=== PATIENT | female | born 1940 | race Caucasian/White ===

== ENCOUNTER 2017-07-03 10:35 | Inpatient (IN) | payer MEDICARE, MEDICAID ==
--- NOTE | 2017-07-03 11:22 | RAD ---
Indication: LEFT side weakness. Slurred speech. Last seen without deficits yesterday. Comparison: No relevant prior exams available on the [facility] for comparison. Technique: Noncontrast CT vertex of skull through foramen magnum. Report: Mild prominence of the cerebral sulci reflecting involution. Unremarkable ventricles and basal cisterns. Decreased density in the periventricular and subcortical white matter while non-specific is most likely due to chronic microangiopathy. Negative for lakhani matter white matter obscuration, intra or extra-axial hemorrhage, or mass effect. Unremarkable orbital contents. Unremarkable calvarium and skull base. Clear visualized paranasal sinuses and mastoid air spaces. Unremarkable scalp. IMPRESSION: Mild involutional change and chronic small vessel ischemic change. Negative for intracranial hemorrhage or CT stigmata of ischemic infarct.
[2017-07-03 11:26] LABS: ABS Basophils 0.1 10^3/ul (0-0.2); ABS Eosinophils 0.2 10^3/ul (0-0.6); ABS Lymphocytes 2.6 10^3/ul (1.0-4.8); ABS Monocytes 0.4 10^3/ul (0-0.8); ABS Neutrophils 3.6 10^3/ul (1.5-7.7); ABS Nucleated RBC 0 10^3/ul; Eosinophil % 2.4 % (0-6); Hematocrit 47 % (35-47); Hemoglobin 15.6 g/dl (12.0-16.0); Lymphocyte % 38.3 % (25-47); Mean Corpuscular HGB Conc 34 g/dl (31-36); Mean Corpuscular Hemoglobin 29 pg (27-31); Mean Corpuscular Volume 87 fL (80-97); Mean Platelet Volume 10 um3 (7.4-10.4); Nucleated Red Blood Cells % 0.1; Platelet Count 225 10^3/ul (150-450); Red Blood Count 5.35 10^6/ul (4.0-5.4); Red Cell Distribution Width 15 % (10.5-15); White Blood Count 6.8 10^3/ul (3.5-10.8)
[2017-07-03 11:40] LABS: EGFR Non-African American 73.6 (>60)
[2017-07-03 11:58] LABS: INR 1.02 (0.77-1.02)
--- NOTE | 2017-07-03 14:47 | ED ---
Orville Ozuna Angela, scribed for Jerome Osorio MD on 07/03/17 at 1047 . Neurological HPI - HPI Summary HPI Summary: This pt is a 76 y/o female presenting to [facility] via [facility] for a possible stroke. ED nurse reports the pt has slurred speech and left sided weakness. Per nurse, pt was last seen well yesterday. - History of Current Complaint Chief Complaint: EDNeurologicalDeficit Stated Complaint: STROKE-LIKE SYMPTOMS Hx Obtained From: Patient Onset/Duration: Still Present Timing: Constant Neurological Deficit Location: LUE, LLE Pain Intensity: 0 Character: Weak - left sided, Impaired Speech - slurred speech Aggravating: Nothing Alleviating: Nothing Associated Signs and Symptoms: Positive: Weakness - left sided, Impaired Speech - slurred - Allergy/Home Medications Allergies/Adverse Reactions: Allergies Allergy/AdvReac Type Severity Reaction Status Date / Time Loratadine [From Claritin] Allergy Nausea Verified 01/02/15 13:36 Simvastatin [From Zocor] Allergy Nausea Verified 01/02/15 13:36 grass Allergy Unknown Uncoded 01/02/15 13:17 Reaction Details Home Medications: Home Medications ALPRAZolam TAB* [Xanax TAB*] 0.25 mg PO TID PRN MDD 0.75 mg 07/03/17 [History Confirmed 07/03/17] Acetaminophen TAB* [Tylenol TAB*] 325 mg PO Q6H PRN 07/03/17 [History Confirmed 07/03/17] Aspirin EC Low Dose* [Ecotrin EC Low Dose 81 MG*] 81 mg PO DAILY 07/03/17 [ History Confirmed 07/03/17] Bimatoprost 0.01% OPHTH (NF) [Lumigan 0.01% OPHTH (NF)] 1 drop BOTH EYES BEDTIME 07/03/17 [History Confirmed 07/03/17] Hydrochlorothiazide TAB* [Hydrodiuril TAB*] 25 mg PO DAILY 07/03/17 [History Confirmed 07/03/17] LORazepam TAB(*) [Ativan 1 MG TAB (*)] 1 mg PO .Q6-8H MDD 3 mg 07/03/17 [ History Confirmed 07/03/17] Multivitamins/Minerals TAB* [Theragran/minerals TAB*] 1 tab PO DAILY 01/11/18 [ History Confirmed 07/03/17] Potassium Chlor TAB* [Klor Con ER TAB*] 20 meq PO BID 07/03/17 [History Confirmed 07/03/17] PMH/Surg Hx/FS Hx/Imm Hx Cardiovascular History: Reports: Hx Hypertension, Other Cardiovascular Problems/ Disorders - BUNDLE BRANCH BLOCKAGE Sensory History: Reports: Hx Contacts or Glasses, Hx Glaucoma - right eye only Opthamlomology History: Reports: Hx Contacts or Glasses, Hx Glaucoma - right eye only Neurological History: Reports: Hx Migraine - "ocular migraines" Psychiatric History: Reports: Hx Anxiety, Hx Depression Denies: Hx Attention Deficit Hyperactivity Disorder, Hx Eating Disorder, Hx Panic Disorder, Hx Post Traumatic Stress Disorder, Hx Inpatient Treatment, Hx Community Mental Health Tx, Hx Schizophrenia, Hx Bipolar Disorder, Hx Suicide Attempt, Hx of Violent Episodes Against Others, Hx Substance Abuse - Surgical History Surgery Procedure, Year, and Place: hysterectomy Infectious Disease History: No Infectious Disease History: Denies: Traveled Outside the [place] in Last 30 Days - Family History Known Family History: Positive: Other - FHx of alcohol abuse - Social History Alcohol Use: None Substance Use Type: Reports: None Smoking Status (MU): Never Smoked Tobacco Review of Systems Negative: Fever, Chills Cardiovascular: Negative Respiratory: Negative Neurological: Other - slurred speech Positive: Weakness - left sided All Other Systems Reviewed And Are Negative: Yes Physical Exam - Summary Physical Exam Summary: Appearance: The patient is well-nourished in no acute pain. Skin: The skin is warm and dry and skin color reflects adequate perfusion. HEENT: The head is normocephalic and atraumatic. The pupils are equal and reactive. The conjunctivae are clear and without drainage. Nares are patent and without drainage. Mouth reveals moist mucous membranes and the throat is without erythema and exudate. The external ears are intact. The ear canals are patent and without drainage. The tympanic membranes are intact. Neck: the neck is supple with full range of motion and non-tender. There are no carotid bruits. There is no neck vein distension. Respiratory: Chest is non-tender. Lungs are clear to auscultation and breath sounds are symmetrical and equal. Cardiovascular: Heart is regular rate and rhythm. There is no murmur or rub auscultated. There is no peripheral edema and pulses are symmetrical and equal. Abdomen: The abdomen is soft and non-tender. There are normal bowel sounds heard in all four quadrants and there is no organomegaly palpated. Musculoskeletal: There is no back tenderness noted. Extremities are non-tender with full range of motion. There is good capillary refill. There is no peripheral edema or calf tenderness elicited. Neurological: Patient is alert and oriented to person, place and time. The patient has symmetrical motor strength in all four extremities. Pt has dysarthria and seems to have expressive aphasia but it is different to tell. She may have a little receptive aphasia. Psychiatric: The patient has an appropriate affect and does not exhibit any anxiety or depression. Triage Information Reviewed: Yes Vital Signs On Initial Exam: Initial Vitals Temp Pulse Resp BP Pulse Ox 97.6 F 82 18 147/73 96 07/03/17 10:38 07/03/17 10:38 07/03/17 10:38 07/03/17 10:38 07/03/17 10:38 Vital Signs Reviewed: Yes Diagnostics - Vital Signs Vital Signs Temp Pulse Resp BP Pulse Ox 07/03/17 10:38 97.6 F 82 18 147/73 96 - Laboratory Lab Results: Lab Results 07/03/17 07/03/17 07/03/17 Range/Units 11:09 11:09 11:09 WBC 6.8 (3.5-10.8) 10^3/ul RBC 5.35 (4.0-5.4) 10^6/ul Hgb 15.6 (12.0-16.0) g/dl Hct 47 (35-47) % MCV 87 (80-97) fL MCH 29 (27-31) pg MCHC 34 (31-36) g/dl RDW 15 (10.5-15) % Plt Count 225 (150-450) 10^3/ul MPV 10 (7.4-10.4) um3 Neut % (Auto) 52.5 (38-83) % Lymph % (Auto) 38.3 (25-47) % Hernando % (Auto) 5.7 (1-9) % Eos % (Auto) 2.4 (0-6) % Baso % (Auto) 1.1 (0-2) % Absolute Neuts (auto) 3.6 (1.5-7.7) 10^3/ul Absolute Lymphs (auto) 2.6 (1.0-4.8) 10^3/ul Absolute Monos (auto) 0.4 (0-0.8) 10^3/ul Absolute Eos (auto) 0.2 (0-0.6) 10^3/ul Absolute Basos (auto) 0.1 (0-0.2) 10^3/ul Absolute Nucleated RBC 0 10^3/ul Nucleated RBC % 0.1 INR (Anticoag Therapy) (0.77-1.02) Sodium 137 (133-145) mmol/L Potassium 3.3 L (3.5-5.0) mmol/L Chloride 102 (101-111) mmol/L Carbon Dioxide 29 (22-32) mmol/L Anion Gap 6 (2-11) mmol/L BUN 7 (6-24) mg/dL Creatinine 0.76 (0.51-0.95) mg/dL Est GFR ( Amer) 94.7 (>60) Est GFR (Non-Af Amer) 73.6 (>60) BUN/Creatinine Ratio 9.2 (8-20) Glucose 101 H (70-100) mg/dL Lactic Acid 1.0 (0.5-2.0) mmol/L Calcium 9.2 (8.6-10.3) mg/dL Total Bilirubin 0.80 (0.2-1.0) mg/dL AST 13 (13-39) U/L ALT 10 (7-52) U/L Alkaline Phosphatase 56 (34-104) U/L Ammonia (16-53) mol/L Troponin I 0.01 (<0.04) ng/mL Total Protein 6.7 (6.4-8.9) g/dL Albumin 3.7 (3.2-5.2) g/dL Globulin 3.0 (2-4) g/dL Albumin/Globulin Ratio 1.2 (1-3) TSH Pending 07/03/17 07/03/17 Range/Units 11:09 13:58 WBC (3.5-10.8) 10^3/ul RBC (4.0-5.4) 10^6/ul Hgb (12.0-16.0) g/dl Hct (35-47) % MCV (80-97) fL MCH (27-31) pg MCHC (31-36) g/dl RDW (10.5-15) % Plt Count (150-450) 10^3/ul MPV (7.4-10.4) um3 Neut % (Auto) (38-83) % Lymph % (Auto) (25-47) % Hernando % (Auto) (1-9) % Eos % (Auto) (0-6) % Baso % (Auto) (0-2) % Absolute Neuts (auto) (1.5-7.7) 10^3/ul Absolute Lymphs (auto) (1.0-4.8) 10^3/ul Absolute Monos (auto) (0-0.8) 10^3/ul Absolute Eos (auto) (0-0.6) 10^3/ul Absolute Basos (auto) (0-0.2) 10^3/ul Absolute Nucleated RBC 10^3/ul Nucleated RBC % INR (Anticoag Therapy) 1.02 (0.77-1.02) Sodium (133-145) mmol/L Potassium (3.5-5.0) mmol/L Chloride (101-111) mmol/L Carbon Dioxide (22-32) mmol/L Anion Gap (2-11) mmol/L BUN (6-24) mg/dL Creatinine (0.51-0.95) mg/dL Est GFR ( Amer) (>60) Est GFR (Non-Af Amer) (>60) BUN/Creatinine Ratio (8-20) Glucose (70-100) mg/dL Lactic Acid (0.5-2.0) mmol/L Calcium (8.6-10.3) mg/dL Total Bilirubin (0.2-1.0) mg/dL AST (13-39) U/L ALT (7-52) U/L Alkaline Phosphatase (34-104) U/L Ammonia 41 (16-53) mol/L Troponin I (<0.04) ng/mL Total Protein (6.4-8.9) g/dL Albumin (3.2-5.2) g/dL Globulin (2-4) g/dL Albumin/Globulin Ratio (1-3) TSH Result Diagrams: 07/03/17 11:09 07/03/17 11:09 Lab Statement: Any lab studies that have been ordered have been reviewed, and results considered in the medical decision making process. - CT Brain CT CT Interpretation: Positive (See Comments) - IMPRESSION: Mild involutional change and chronic small vessel ischemic change. Negative for intracranial hemorrhage or CT stigmata of ischemic infarct. Dr. Osorio has reviewed this radiology report. CT Interpretation Completed By: Radiologist - EKG 11:04 Cardiac Rate: NL EKG Rhythm: Sinus Rhythm - at 79 bpm EKG Interpretation: Right bundle branch block EKG Comparison: No Significant Change - no change from 12/08/14. Course/Dx - Course Course Of Treatment: Ms. Stewart presented with AMS. She was reported to have a left-sided weakness at home that she woke up with this AM. To my exam she has significant dysarthria and confusion. I can't tell if she has a expressive or receptive aphasia or is just confused. I can't detect any left sided weakness but she is not very cooperative to the exam. Her pupils are small but she is breathing OK and her home meds do not include narcotics. She is, however, taking Ativan and although she recently filled a new script, her bottle is almost empty. This may be solely an OD of medications. Dr. Franz was asked to see her and agreed that it doesn't look like an acute sroke at this point. The hospitalists are admitting her. - Diagnoses Provider Diagnoses: Altered mental status - Physician Notifications Discussed Care Of Patient With: Leon Franz Instructed by Provider To: Other - I discussed pt care with Dr. Franz, neurologist. [13:37] I discussed pt's case with Dr. Dee, hospitalist, who has agreed to admit the pt. - Critical Care Time Critical Care Time: 30-74 min Discharge - Discharge Plan Condition: Stable Disposition: ADMITTED TO [facility] Referrals: Babatunde Lundberg MD [Primary Care Provider] - The documentation as recorded by the Orville tapia Angela accurately reflects the service I personally performed and the decisions made by me, Jerome Osorio MD.
[2017-07-03] MEDS ORDERED: Magnesium Sulfate 1 GM IV* 1 GM/100 ML BAG IV ONE (16:20)
[2017-07-03] MEDS: NS 0.9% 1000 ML* 1,000 ML IV SCH (18:19)
[2017-07-03] MEDS: Acetaminophen TAB* 325 MG PO PRN (18:20)
[2017-07-03] MEDS: KCL 10 MEQ/50 ML IVPREMIX* 10 MEQ/50 ML BAG IV SCH ×3 (18:20→23:40)
--- NOTE | 2017-07-03 20:36 | HP ---
HISTORY AND PHYSICAL: DATE OF ADMISSION: 07/03/17 ATTENDING PHYSICIAN: Mayda Dee DO CHIEF COMPLAINT: Acute delirium. HISTORY OF PRESENT ILLNESS: This is a 76-year-old female with history of anxiety and depression, who takes Ativan at home, who presented to the emergency department after she called the ambulance hours after she took about 75 pills of Ativan 0.5 mg. She reports suicidal intention the night prior to admission. She filled her prescription for Ativan 90 tablets on 07/01/17, and today in the emergency department she has only 14 tablets left, they are 0.5 mg tablets. She reports she wakes up every morning in a panic and did not want to live anymore. She denies ingestion of any other substances or prescriptions and she called the ambulance when she woke up because she was scared. She feels sleepy at this time, but has no other complaints. She was admitted to inpatient psych 2 years ago with ongoing anxiety. PAST MEDICAL HISTORY: 1. Personality disorder. 2. Anxiety. 3. Hypertension. SOCIAL HISTORY: Her daughter, Elizabeth King, is her decision maker if she is unable to make decisions for herself. Elizabeth's phone number is [phone]. Most of this history was obtained via [employer] as Jada is unable to provide a reliable history. She lives alone. She denies alcohol, tobacco or illicit substances. REVIEW OF SYSTEMS: Reports sleepiness, anxiety, and depression. Denies chest pain, shortness of breath, dizziness, lightheadedness, homicidal ideation, abdominal pain, nausea or vomiting. PHYSICAL EXAMINATION GENERAL: Alert, sitting up in bed, in no distress. She follows commands. Her speech is slurred and she is oriented to person only. VITAL SIGNS: Temperature 97.6, heart rate 66, respiratory rate 19, pulse ox 96 % on room air, blood pressure 120/61. HEENT: Pupils are 2 mm equal, round and reactive to light. Extraocular muscles are intact. Dry mucosa. NECK: No cervical lymphadenopathy. No JVP. LUNGS: Clear bilaterally. HEART: Regular rate and rhythm. No murmurs. ABDOMEN: Soft, nontender, nondistended. No guarding or rebound. EXTREMITIES: No rashes, ulcers, or edema. NEUROLOGIC: Strength is 5+ throughout. Sensation is intact. Coordination is intact. No nystagmus. LABORATORY DATA: CBC is unremarkable. Troponin is 0.01. Salicylates, acetaminophen, and serum alcohol are negative. LFTs are within normal limits. TSH is within normal limits. IMAGING: Brain CT showed mild involutional change and chronic small vessel ischemic change. Negative for intracranial hemorrhage or CT stigmata of ischemic infarct. EKG; QRS is 162, QTC is 506. She has a right bundle-branch block which is present on prior EKGs. ASSESSMENT AND PLAN: This is a 76-year-old female with history of anxiety and personality disorder who presents after Ativan overdose. 1. Ativan overdose with suicidal intent. Needs one-to-one observation and psychiatric evaluation. I discussed this case with [facility] and they recommended IV fluids and repleting her potassium and magnesium. Her QRS and QTC are similar to prior EKGs; however, we will replete electrolytes. Her other tox screen was negative. She needs to be monitored on telemetry. We will hold benzos for now. 2. DVT prophylaxis. Lovenox. 3. Disposition. Admit to telemetry on a one-to-one with psychiatric evaluation. TIME SPENT: Greater than 60 minutes was spent on this H and P. [id number]/CPS #: [id number] MTDD
--- NOTE | 2017-07-03 21:01 | CONS ---
NEUROLOGY CONSULTATION: DATE OF CONSULT: 07/03/17 LOCATION: She is in the emergency room to be admitted. REFERRING PROVIDER: Dr. Osorio. CHIEF COMPLAINT: Slurred speech, lethargy. HISTORY OF PRESENT ILLNESS: Jada Stewart is a 76-year-old woman, who normally speaks with her daughter over the phone, who lives in [place], every morning. Her daughter did not hear from her and called and there was no answer. Daughter called the neighbor who went over and checked on Jada and Jada had slurred speech and was lethargic. There is a suggestion of left-sided weakness by either an candy attendant or perhaps the neighbor. She was brought in to the emergency room and on Dr. Osorio's evaluation, he did not see any focal weakness, but just slurred speech and very poor attention and concentration. I was asked to see her in consultation. Her son is present, but they are pretty estranged, and he is not up-to-date on her medical history. She had an overdose on benzodiazepines and amitriptyline in her mental health admission several years ago. PAST MEDICAL HISTORY: She has a history of bipolar disorder, diabetes, hypertension. MEDICATIONS: At home, consist of: 1. Lorazepam 1 mg p.o. t.i.d. p.r.n. 2. Alprazolam 0.25 mg p.o. t.i.d. p.r.n. 3. Aspirin 81 mg p.o. q. day. 4. Hydrochlorothiazide 25 mg p.o. q. day. 5. Potassium supplementation 20 mEq p.o. q. day. ALLERGIES: She is listed as having allergies to LORATADINE and SIMVASTATIN in the computerized record. FAMILY HISTORY: Noncontributory. REVIEW OF SYSTEMS: From the patient is difficult as she is lethargic. I was able to get her to wake and answer a few questions and she denied headache, denied being cold, denied wanting anything to eat. She did answer affirmatively to whether she has back pain, which is a chronic history according to her son. PHYSICAL EXAM: She is obese. Temperature 97.6 by temporal scan, blood pressure 140/70, heart rate in the 70s on the monitor, and in sinus rhythm. Respiratory rate fluctuates between 14 to 18 and oxygen saturation is 94% on the monitor with nasal cannula oxygen. Head is atraumatic. Heart is in a regular rate and rhythm without murmurs. Carotid pulses are difficult to feel. She is overweight, but I do not hear any bruits. Oral mucosa is dry and I do not see any oral trauma. Neurologically, pupils are small, perhaps 2 mm reacting down to maybe 1.5 mm. Eye movements are generally mid position with some roving and dysconjugate when stimulated. She does open her eyes when vigorously stimulated and tries to visually focus on me. Corneal reflexes are weakly present. Facial grimace is symmetric to nail bed pressure in all 4 limbs. There is a weak nasal tickle response bilaterally and symmetrically. When she does speak, she is dysarthric. Motor exam reveals decreased muscle tone diffusely. She moves her limbs restlessly. With deep nail bed pressure, she withdraws volitionally with each limb and grimaces. Plantar responses are flexor. Ankle and knee reflexes are absent. DIAGNOSTIC STUDIES/LAB DATA: Includes a CT of the brain, which looks normal. Her CBC and chemistry profile are within normal limits other than a glucose of 101 and potassium of 3.3. INR is normal at 1.02. IMPRESSION AND PLAN: Impression is that of extreme lethargy, which has a broad differential diagnosis, but certainly overdose is a possibility. We have her pill bottles from home and she picked up a prescription for Ativan 1 mg tablets 90 distributed on 06/30/17 according to the pill bottle and there are only about 10 or 12 tablets in it. I discussed with Dr. Osorio possibly giving her reversal agent, but that could precipitate seizures particularly if she is chronically on benzodiazepines. So far, her breathing seems adequate and her vital signs are also adequate. She should be evaluated for any potential for infection, although at this point none seems evident. Her liver enzymes are normal, but I will check an ammonia level as well as a TSH. If she does not start to wake up, then we will arrange for an MRI scan as well. I have discussed my impression with her son and [id number] and Dr. Osorio. [id number]/[facility] #: [id number] [facility]
[2017-07-03] MEDS: Latanoprost 0.005%* 2.5 ml BTL BOTH EYES SCH (22:16)
[2017-07-03] MEDS: Potassium Chlor TAB* 10 MEQ TAB.ER PO SCH (22:21)
[2017-07-04] MEDS: KCL 10 MEQ/50 ML IVPREMIX* 10 MEQ/50 ML BAG IV SCH (01:06)
[2017-07-04 01:27] LABS: Urine Appearance Cloudy; Urine Blood Negative (Negative); Urine Color Yellow; Urine Ketones Negative (Negative); Urine Protein Negative (Negative); Urine Urobilinogen Negative (Negative)
[2017-07-04] MEDS: NS 0.9% 1000 ML* 1,000 ML IV SCH (03:48)
[2017-07-04 05:43] LABS: EGFR Non-African American 68.4 (>60)
[2017-07-04] MEDS ORDERED: Hydrochlorothiazide TAB* 25 MG PO SCH (09:00)
[2017-07-04] MEDS ORDERED: Aspirin EC Low Dose* 81 MG TAB.EC PO SCH (09:00)
[2017-07-04] MEDS ORDERED: Multivitamins/Minerals TAB PO SCH (09:00)
[2017-07-04] MEDS: Potassium Chlor TAB* 10 MEQ TAB.ER PO SCH ×2 (10:22→20:20)
[2017-07-04] MEDS: Acetaminophen TAB* 325 MG PO PRN (10:23)
[2017-07-04] MEDS: Latanoprost 0.005%* 2.5 ml BTL BOTH EYES SCH (20:24)
[2017-07-04 22:29] VITALS: BP 155/68
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
--- NOTE | 2017-07-05 03:18 | DS ---
DISCHARGE SUMMARY: DATE OF ADMISSION: 07/03/17 DATE OF DISCHARGE: 07/04/17 ATTENDING PHYSICIAN: Mayda Dee DO CHIEF COMPLAINT: Acute delirium. PRIMARY DISCHARGE DIAGNOSIS: Intentional overdose with Ativan. SECONDARY DISCHARGE DIAGNOSES: 1. Panic disorder. 2. Hypertension. DISCHARGE MEDICATIONS: 1. KCl 20 mEq twice daily. 2. Hydrochlorothiazide 25 mg daily. 3. Multivitamin. 4. Bimatoprost 0.01% one drop both eyes at bedtime. 5. Aspirin 81 mg daily. 6. Ativan 1 mg q.8 p.r.n. PHYSICAL EXAMINATION: General: Drowsy, but responsive elderly obese female, in no distress. HEENT: Pupils equal, round, reactive to light. No nystagmus. Moist mucosa. Neck: No lymphadenopathy. No JVP. Chest: Regular rate and rhythm. No murmurs. Lungs: Clear bilaterally. Abdomen: Soft, nontender, nondistended. No guarding or rebound. Extremities: No edema. No rashes. Neurologic: Oriented x3. Follows commands and answers appropriately. Strength 5+ throughout and sensation intact. HOSPITAL COURSE BY PROBLEM: 1. Ativan overdose with suicidal intent. Ms. Stewart took approximately 70 pills of 0.5 mg of Ativan. She was extremely drowsy and disoriented upon arrival, but was able to communicate with us that she took the pills because she did not want to live. Poison Control was contacted and recommended close monitoring and IV fluids. By the second day of admission, she was much more alert and appropriate with us. At this point, she was evaluated by Psych, who agreed that she should be admitted to Inpatient Psych. She was voluntarily transferred to the second floor, where she will receive ongoing care. She had no medical sequelae of Ativan overdose. 2. Hypertension. She was continued on hydrochlorothiazide. TIME SPENT: Greater than 60 minutes were spent on this discharge. [id number]/[facility] #: [id number] [facility]
== END 2017-07-04 22:34 | DRG 918 ==
LOC: ED 10:35 → MEDTELE 14:53 → BSU 07-04 22:15 → MEDTELE 07-04 22:15
PROVIDERS: ADMIT Internal Medicine; ATTEND Internal Medicine
DX: T42.4X2A Poisoning by benzodiazepines, intentional self-harm, initial encounter (principal); F33.2 Major depressive disorder, recurrent severe without psychotic features; I45.10 Unspecified right bundle-branch block; E11.9 Type 2 diabetes mellitus without complications; E66.9 Obesity, unspecified; F32.9 Major depressive disorder, single episode, unspecified; F41.0 Panic disorder [episodic paroxysmal anxiety]; I10 Essential (primary) hypertension; R40.0 Somnolence; F41.9 Anxiety disorder, unspecified; F60.9 Personality disorder, unspecified; G43.909 Migraine, unspecified, not intractable, without status migrainosus; R41.82 Altered mental status, unspecified; H40.9 Unspecified glaucoma; M54.5 Low back pain; Y92.9 Unspecified place or not applicable; Z79.82 Long term (current) use of aspirin; Z88.8 Allergy status to other drugs, medicaments and biological substances; Z81.1 Family history of alcohol abuse and dependence; Z90.710 Acquired absence of both cervix and uterus; Z68.30 Body mass index [BMI] 30.0-30.9, adult
CPT/HCPCS: 36415; 70450; 80048; 80053; 80307; 80320; 80329; 80346; 81003; 81015; 82140; 82803; 83605; 84443; 84484; 85025; 85610; 87077; 87086; 87641; 93005; A9270-GY; G0480; J3475; J3480

== ENCOUNTER 2017-07-04 14:34 | Inpatient (IN) | payer MEDICARE, MEDICAID ==
[2017-07-04] MEDS ORDERED: Potassium Chlor TAB* 10 MEQ TAB.ER PO SCH (21:00)
[2017-07-04] MEDS ORDERED: Sertraline* 25 MG TAB ONE (22:56)
[2017-07-04] MEDS ORDERED: busPIRone TAB* 15 MG PO ONE (22:57)
[2017-07-04] MEDS: Latanoprost 0.005%* 2.5 ml BTL BOTH EYES SCH (23:30)
[2017-07-04] MEDS: busPIRone TAB* 15 MG PO SCH (23:50)
[2017-07-04] MEDS: Sertraline* 25 MG TAB PO SCH (23:55)
[2017-07-05] MEDS: Acetaminophen TAB* 325 MG PO PRN (06:15)
[2017-07-05] MEDS: Potassium Chlor TAB* 20 MEQ TAB.ER PO SCH ×2 (09:43→20:43)
[2017-07-05] MEDS: busPIRone TAB* 15 MG PO SCH ×2 (09:43→20:43)
[2017-07-05] MEDS: Vitamin THERAPEUTIC TAB PO SCH (09:44)
[2017-07-05] MEDS: Hydrochlorothiazide TAB* 25 MG PO SCH (09:44)
[2017-07-05] MEDS: Sertraline* 25 MG TAB PO SCH (09:44)
[2017-07-05] MEDS: Aspirin EC Low Dose* 81 MG TAB.EC PO SCH (09:44)
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
[2017-07-05] MEDS: Latanoprost 0.005%* 2.5 ml BTL BOTH EYES SCH (20:42)
[2017-07-06] MEDS: Hydrochlorothiazide TAB* 25 MG PO SCH (09:44)
[2017-07-06] MEDS: Aspirin EC Low Dose* 81 MG TAB.EC PO SCH (09:44)
[2017-07-06] MEDS: Potassium Chlor TAB* 20 MEQ TAB.ER PO SCH ×2 (09:45→20:43)
[2017-07-06] MEDS: Sertraline* 25 MG TAB PO SCH (09:45)
[2017-07-06] MEDS: busPIRone TAB* 15 MG PO SCH ×2 (09:46→20:43)
[2017-07-06] MEDS: Vitamin THERAPEUTIC TAB PO SCH (09:46)
--- NOTE | 2017-07-06 17:24 | PN ---
Subjective - Subjective Subjective: Jada is found in bed in the middle of the day, she endorses improved mood, denies SI, problems with anxiety or side effects from prescribed meds. She describes steadier gait and no new fall. She does complains of poor sleep and she contracts to staying out of bed during daytime. "I feel love by my family, I look forward to moving to [place] to be near them." Objective - Appearance Appearance: Obese Dysmorphic Features: No Hygiene: Normal Grooming: Disheveled - Behavior Psychomotor Activities: Abnormal-Decreased - Attitude and Relatedness Attitude and Relatedness: Cooperative Eye Contact: Fair - Speech Quality: Unpressured Latencies: Normal Quantity: Appropriate - Mood Patient's Decription of Mood: "Okay" - Affect Observed Affect: Constricted Affect Consistent with: Dysphoria - Thought Process Patient's Thought Process: Coherent, Goal Directed Thought Content: No Passive Wish, No Suicidal Planning, No Homicidal Ideation, No Paranoid Ideation - Sensorium Experiencing Hallucinations: No, Sensorium is Clear - Level of Consciousness Level of Consciousness: Alert Orientation: Yes Intact - Impulse Control Impulse Control: Intact - Insight and Judgement Insight and Judgement: Fair - Group Participation Particating in Group Activities: No - Medication Management Medication Management Adherence: Yes Assessment - Assessment Merits Inpatient Hospitalization: Consolidate Improvements, For Discharge Planning Inpatient DSM-IV Dx: Major depressive disorder, recurrent, severe, without psychotic features. Panic anxiety disorder without agoraphobia. Clinical Impression: SUMMARY: 76-year-old white female with a history of depression and anxiety, accepted as a transfer for voluntary psychiatric admission from the medical service where she was admitted following an intentional ingestion of approximately 75 tablets of 0.5 mg strength lorazepam in a suicide attempt in the [id number] of psychosocial stressors. Not engaged in programming, but reporting reduced distress level, improving mood and absence of suicidal ideation or side effects from prescribed meds. She needs continued admission for consolidation. Plan - Plan Treatment Plan: TREATMENT PLAN: 1. Continue Sertraline 50 mg daily and BuSpar 7.5 mg p.o. b.i.d. 2. Encouraged to avail herself of all milieu activities including individual and group psychotherapy. Medications: Current Medications Acetaminophen (Tylenol Tab*) 650 mg PO Q4H PRN PRN Reason: for pain; or Temp >101 F Last Admin: 07/05/17 06:15 Dose: 650 mg Aspirin (Aspirin Ec Low Dose*) 81 mg PO DAILY [facility] Last Admin: 07/06/17 09:44 Dose: 81 mg Buspirone HCl (Buspar Tab *) 7.5 mg PO BID [facility] Last Admin: 07/06/17 09:46 Dose: 7.5 mg Hydrochlorothiazide (Hydrodiuril Tab*) 25 mg PO DAILY [facility] Last Admin: 07/06/17 09:44 Dose: 25 mg Hydroxyzine HCl (Atarax Tab*) 25 mg PO Q6H PRN PRN Reason: ANXIETY Latanoprost (Xalatan 0.005%*) 1 drop BOTH EYES BEDTIME [facility] PRN Reason: Protocol Last Admin: 07/05/17 20:42 Dose: 1 drop Multivitamins (Theragran Tab*) 1 tab PO DAILY [facility] Last Admin: 07/06/17 09:46 Dose: 1 tab Potassium Chloride (Klor Con Er Tab*) 20 meq PO BID [facility] Last Admin: 07/06/17 09:45 Dose: 20 meq Sertraline HCl (Zoloft*) 25 mg PO DAILY [facility] Last Admin: 07/06/17 09:45 Dose: 25 mg - Discharge Plan Discharge Plan: Outpatient Follow Up Outpatient Program: [facility]
[2017-07-06] MEDS: Latanoprost 0.005%* 2.5 ml BTL BOTH EYES SCH (20:43)
[2017-07-07] MEDS: Acetaminophen TAB* 325 MG PO PRN ×2 (04:50→12:26)
[2017-07-07] MEDS: Vitamin THERAPEUTIC TAB PO SCH (08:43)
[2017-07-07] MEDS: busPIRone TAB* 15 MG PO SCH ×2 (08:43→20:10)
[2017-07-07] MEDS: Potassium Chlor TAB* 20 MEQ TAB.ER PO SCH ×2 (08:43→20:10)
[2017-07-07] MEDS: Hydrochlorothiazide TAB* 25 MG PO SCH (08:43)
[2017-07-07] MEDS: Sertraline* 25 MG TAB PO SCH (08:43)
[2017-07-07] MEDS: Aspirin EC Low Dose* 81 MG TAB.EC PO SCH (08:43)
[2017-07-07] MEDS: hydrOXYzine HCL TAB* 25 MG PO PRN ×2 (08:49→14:40)
--- NOTE | 2017-07-07 10:43 | PN ---
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 She is tolerating her new medications well and has no complaints. Her cognitive functioning and gait steadiness have improved. I understand that her children are supportive, calling her often and looking to assist her in moving down to [place] to be closer to her daughter, Elizabeth. The patient continues to deny SI. "The last thing I remember was holding that bottle of pills. Then it was lights out. Thank God nothing worse happened." Objective - Appearance Appearance: Obese Dysmorphic Features: No Hygiene: Normal Grooming: Fairly Well Kept - Behavior Psychomotor Activities: Abnormal-Decreased Exhibits Abnormal Movement: No - Attitude and Relatedness Attitude and Relatedness: Cooperative Eye Contact: Fair - Speech Quality: Unpressured Latencies: Normal Quantity: Appropriate - Mood Patient's Decription of Mood: "Anxious" - Affect Observed Affect: Constricted Affect Consistent with: Dysphoria - Thought Process Patient's Thought Process: Coherent Thought Content: No Passive Wish, No Suicidal Planning, No Homicidal Ideation, No Paranoid Ideation - Sensorium Experiencing Hallucinations: No, Sensorium is Clear Type of Hallucinations: Visual: No, Auditory: No, Command: No - Level of Consciousness Level of Consciousness: Alert Orientation: Yes Intact, Yes Orientated to Time, Yes Orientated to Place, Yes Orientated to Person - Impulse Control Impulse Control: Tenuous - Insight and Judgement Insight and Judgement: Fair - Group Participation Particating in Group Activities: Yes - Medication Management Medication Management Adherence: Yes Assessment - Assessment Merits Inpatient Hospitalization: For Immediate Safety, For Stabilization Inpatient DSM-IV Dx: Major depressive disorder, recurrent, severe, without psychotic features. Panic anxiety disorder without agoraphobia. Clinical Impression: 74 y.o. , white female with a history of depression and anxiety admitted to medicine following an intentional ingestion of approximately 75 tablets of 0.5mg strength lorazepam in suicide attempt. Patient now denies SI and is regretful, but still c/o depressed mood with multiple neurovegetative symptoms and profound anxiety. Plan - Plan Treatment Plan: Name: JADA FINCH Birthdate: 1940 [id number] We will increase sertraline to 50mg daily and keep buspirone at 7.5mg BID. Will add trazodone 50mg nightly for sleep. Patient is receiving prn hydroxyzine for panic anxiety. Encourage milieu participation. Will place on fall precautions. Need contact with family for discharge planning. Continue to treat on the inpatient basis. Continued Medication Management: Start Medication Medications: Current Medications Acetaminophen (Tylenol Tab*) 650 mg PO Q4H PRN PRN Reason: for pain; or Temp >101 F Last Admin: 07/07/17 04:50 Dose: 650 mg Aspirin (Aspirin Ec Low Dose*) 81 mg PO DAILY [facility] Last Admin: 07/07/17 08:43 Dose: 81 mg Buspirone HCl (Buspar Tab *) 7.5 mg PO BID [facility] Last Admin: 07/07/17 08:43 Dose: 7.5 mg Hydrochlorothiazide (Hydrodiuril Tab*) 25 mg PO DAILY [facility] Last Admin: 07/07/17 08:43 Dose: 25 mg Hydroxyzine HCl (Atarax Tab*) 25 mg PO Q6H PRN PRN Reason: ANXIETY Last Admin: 07/07/17 08:49 Dose: 25 mg Latanoprost (Xalatan 0.005%*) 1 drop BOTH EYES BEDTIME [facility] PRN Reason: Protocol Last Admin: 07/06/17 20:43 Dose: 1 drop Multivitamins (Theragran Tab*) 1 tab PO DAILY [facility] Last Admin: 07/07/17 08:43 Dose: 1 tab Potassium Chloride (Klor Con Er Tab*) 20 meq PO BID [facility] Last Admin: 07/07/17 08:43 Dose: 20 meq Sertraline HCl (Zoloft*) 50 mg PO DAILY [facility] Trazodone HCl (Desyrel Tab*) 50 mg PO BEDTIME [facility] - Discharge Plan Discharge Plan: Inpatient Hospitalization
[2017-07-07] MEDS: Latanoprost 0.005%* 2.5 ml BTL BOTH EYES SCH (20:12)
[2017-07-07] MEDS ORDERED: traZODone TAB* 50 MG TAB PO SCH (21:00)
[2017-07-08] MEDS: hydrOXYzine HCL TAB* 25 MG PO PRN (03:30)
[2017-07-08] MEDS: Acetaminophen TAB* 325 MG PO PRN ×2 (09:30→21:43)
[2017-07-08] MEDS: Potassium Chlor TAB* 20 MEQ TAB.ER PO SCH ×2 (09:31→21:33)
[2017-07-08] MEDS: busPIRone TAB* 15 MG PO SCH ×2 (09:33→21:32)
[2017-07-08] MEDS: Sertraline* 25 MG TAB PO SCH (09:34)
[2017-07-08] MEDS: Aspirin EC Low Dose* 81 MG TAB.EC PO SCH (09:34)
[2017-07-08] MEDS: Hydrochlorothiazide TAB* 25 MG PO SCH (09:35)
[2017-07-08] MEDS: Vitamin THERAPEUTIC TAB PO SCH (09:35)
--- NOTE | 2017-07-08 11:36 | PN ---
[facility]: Group Therapy Note - Service Type Service Type: [id number] Group Psychotherapy - Cognitive Behavioral Group Therapy Note: Jada was over inclusive in group discussion this moring, but endorsed benefitting from presented information and discussion. She expresses recurrent night terror experiences at 2 am, waking and experiencing anxiety. She is responsive to redirection, but needs prompting.
[2017-07-08] MEDS ORDERED: Zolpidem TAB* 5 MG PO PRN (11:55)
--- NOTE | 2017-07-08 12:02 | PN ---
Subjective - Subjective Date of Service: 07/08/17 Service Type: 58631 Hosp care 15 min low complexity Subjective: The patient continues to complain of anxiety and insomnia. Claims to have had a bad experience with trazodone last night. "I didn't sleep at all and then I wake up in the morning and I see tea cups and saucers on the wall." Jada continues to deny suicidality. I left return messages for her daughter, Elizabeth King ([phone]). I understand from the notes that the patient's family is working together to get her moved down to [place], where she would have more social support. Objective - Appearance Appearance: Obese Dysmorphic Features: No Hygiene: Normal Grooming: Fairly Well Kept - Behavior Psychomotor Activities: Abnormal-Decreased Exhibits Abnormal Movement: No - Attitude and Relatedness Attitude and Relatedness: Cooperative Eye Contact: Fair - Speech Quality: Unpressured Latencies: Normal Quantity: Appropriate - Mood Patient's Decription of Mood: "Anxious" - Affect Observed Affect: Constricted Affect Consistent with: Dysphoria - Thought Process Patient's Thought Process: Coherent Thought Content: No Passive Wish, No Suicidal Planning, No Homicidal Ideation, No Paranoid Ideation - Sensorium Experiencing Hallucinations: No, Sensorium is Clear Type of Hallucinations: Visual: No, Auditory: No, Command: No - Level of Consciousness Level of Consciousness: Alert Orientation: Yes Intact, Yes Orientated to Time, Yes Orientated to Place, Yes Orientated to Person - Impulse Control Impulse Control: Tenuous - Insight and Judgement Insight and Judgement: Fair - Group Participation Particating in Group Activities: Yes - Medication Management Medication Management Adherence: Yes Assessment - Assessment Merits Inpatient Hospitalization: For Immediate Safety, For Stabilization Inpatient DSM-IV Dx: Major depressive disorder, recurrent, severe, without psychotic features. Panic anxiety disorder without agoraphobia. Clinical Impression: 74 y.o. , white female with a history of depression and anxiety admitted to medicine following an intentional ingestion of approximately 75 tablets of 0.5mg strength lorazepam in suicide attempt. Patient now denies SI and is regretful, but still c/o depressed mood with multiple neurovegetative symptoms and profound anxiety. Plan - Plan Treatment Plan: Name: JADA FINCH Birthdate: 1940 [id number] The patient is receiving sertraline 50mg daily and buspirone 7.5mg BID. Trazodone does not appear well tolerated for sleep and we will replace this with prn zolpidem for insomnia. Patient is receiving prn hydroxyzine for panic anxiety. Encourage milieu participation. Will place on fall precautions and order PT/OT consults. Need contact with family for discharge planning. Continue to treat on the inpatient basis. Continued Medication Management: Start Medication Medications: Current Medications Acetaminophen (Tylenol Tab*) 650 mg PO Q4H PRN PRN Reason: for pain; or Temp >101 F Last Admin: 07/08/17 09:30 Dose: 650 mg Aspirin (Aspirin Ec Low Dose*) 81 mg PO DAILY [facility] Last Admin: 07/08/17 09:34 Dose: 81 mg Buspirone HCl (Buspar Tab *) 7.5 mg PO BID [facility] Last Admin: 07/08/17 09:33 Dose: 7.5 mg Hydrochlorothiazide (Hydrodiuril Tab*) 25 mg PO DAILY [facility] Last Admin: 07/08/17 09:35 Dose: 25 mg Hydroxyzine HCl (Atarax Tab*) 25 mg PO Q6H PRN PRN Reason: ANXIETY Last Admin: 07/08/17 03:30 Dose: 25 mg Latanoprost (Xalatan 0.005%*) 1 drop BOTH EYES BEDTIME [facility] PRN Reason: Protocol Last Admin: 07/07/17 20:12 Dose: 1 drop Multivitamins (Theragran Tab*) 1 tab PO DAILY [facility] Last Admin: 07/08/17 09:35 Dose: 1 tab Potassium Chloride (Klor Con Er Tab*) 20 meq PO BID [facility] Last Admin: 07/08/17 09:31 Dose: 20 meq Sertraline HCl (Zoloft*) 50 mg PO DAILY [facility] Last Admin: 07/08/17 09:34 Dose: 50 mg Zolpidem Tartrate (Ambien Tab*) 5 mg PO BEDTIME PRN PRN Reason: INSOMNIA - Discharge Plan Discharge Plan: Inpatient Hospitalization
[2017-07-08] MEDS: Latanoprost 0.005%* 2.5 ml BTL BOTH EYES SCH (21:35)
[2017-07-09] MEDS: hydrOXYzine HCL TAB* 25 MG PO PRN (06:36)
[2017-07-09] MEDS: Hydrochlorothiazide TAB* 25 MG PO SCH (09:41)
[2017-07-09] MEDS: Sertraline* 25 MG TAB PO SCH (09:41)
[2017-07-09] MEDS: Vitamin THERAPEUTIC TAB PO SCH (09:41)
[2017-07-09] MEDS: Aspirin EC Low Dose* 81 MG TAB.EC PO SCH (09:41)
[2017-07-09] MEDS: busPIRone TAB* 15 MG PO SCH (09:42)
[2017-07-09] MEDS: Potassium Chlor TAB* 20 MEQ TAB.ER PO SCH ×2 (09:42→20:40)
[2017-07-09] MEDS: clonazePAM TAB(*) 0.5 MG PO PRN ×2 (11:21→18:54)
--- NOTE | 2017-07-09 11:51 | PN ---
Subjective - Subjective Date of Service: 07/09/17 Service Type: [id number] Hosp care 15 min low complexity Subjective: Jada is anxious and distressed this AM. She claims to have experienced nausea and vomiting that kept her up all night and attributes this to one of her medications. She states that hydroxyzine in particular does not work and makes her more anxious. She is now requesting d/c for this Friday, 07/11, stating that she needs to pack for her move to [place]. She continues to deny SI. Objective - Appearance Appearance: Obese Dysmorphic Features: No Hygiene: Normal Grooming: Fairly Well Kept - Behavior Psychomotor Activities: Normal Exhibits Abnormal Movement: No - Attitude and Relatedness Attitude and Relatedness: Cooperative Eye Contact: Fair - Speech Quality: Unpressured Latencies: Normal Quantity: Appropriate - Mood Patient's Decription of Mood: "Anxious" - Affect Observed Affect: Tearful Affect Consistent with: Dysphoria - Thought Process Patient's Thought Process: Coherent Thought Content: No Passive Wish, No Suicidal Planning, No Homicidal Ideation, No Paranoid Ideation - Sensorium Experiencing Hallucinations: No, Sensorium is Clear Type of Hallucinations: Visual: No, Auditory: No, Command: No - Level of Consciousness Level of Consciousness: Alert Orientation: Yes Intact, Yes Orientated to Time, Yes Orientated to Place, Yes Orientated to Person - Impulse Control Impulse Control: Tenuous - Insight and Judgement Insight and Judgement: Fair - Group Participation Particating in Group Activities: No - Medication Management Medication Management Adherence: Yes Assessment - Assessment Merits Inpatient Hospitalization: Consolidate Improvements, Pending Safe DC Plan Inpatient DSM-IV Dx: Major depressive disorder, recurrent, severe, without psychotic features. Panic anxiety disorder without agoraphobia. Clinical Impression: 74 y.o. , white female with a history of depression and anxiety admitted to medicine following an intentional ingestion of approximately 75 tablets of 0.5mg strength lorazepam in suicide attempt. Patient now denies SI and is regretful, but still c/o depressed mood with multiple neurovegetative symptoms and profound anxiety. Plan - Plan Treatment Plan: Name: JADA FINCH Birthdate: 1940 [id number] The patient is receiving sertraline 50mg daily and buspirone 7.5mg BID. We will d/c buspirone and hydroxyzine, as these may be making her nauseous. We will start clonazepam 0.5mg PO BID prn for anxiety. Encourage milieu participation. PT/OT consults were completed and patient has no senior living needs. Family has been in contact and agreeable with discharge planning. Patient will likely move to [place] with her daughter on the of this month. Continue to treat on the inpatient basis. Continued Medication Management: Start Medication Medications: Current Medications Acetaminophen (Tylenol Tab*) 650 mg PO Q4H PRN PRN Reason: for pain; or Temp >101 F Last Admin: 07/08/17 21:43 Dose: 650 mg Aspirin (Aspirin Ec Low Dose*) 81 mg PO DAILY [facility] Last Admin: 07/09/17 09:41 Dose: 81 mg Clonazepam (Klonopin Tab(*)) 0.5 mg PO BID PRN PRN Reason: ANXIETY Hydrochlorothiazide (Hydrodiuril Tab*) 25 mg PO DAILY [facility] Last Admin: 07/09/17 09:41 Dose: 25 mg Latanoprost (Xalatan 0.005%*) 1 drop BOTH EYES BEDTIME [facility] PRN Reason: Protocol Last Admin: 07/08/17 21:35 Dose: 1 drop Multivitamins (Theragran Tab*) 1 tab PO DAILY [facility] Last Admin: 07/09/17 09:41 Dose: 1 tab Potassium Chloride (Klor Con Er Tab*) 20 meq PO BID [facility] Last Admin: 07/09/17 09:42 Dose: 20 meq Sertraline HCl (Zoloft*) 50 mg PO DAILY [facility] Last Admin: 07/09/17 09:41 Dose: 50 mg Zolpidem Tartrate (Ambien Tab*) 5 mg PO BEDTIME PRN PRN Reason: INSOMNIA - Discharge Plan Discharge Plan: Inpatient Hospitalization
[2017-07-09] MEDS: Latanoprost 0.005%* 2.5 ml BTL BOTH EYES SCH (20:40)
[2017-07-10] MEDS: clonazePAM TAB(*) 0.5 MG PO PRN (05:57)
[2017-07-10] MEDS: Acetaminophen TAB* 325 MG PO PRN ×2 (07:48→20:45)
[2017-07-10] MEDS: Sertraline* 25 MG TAB PO SCH (08:06)
[2017-07-10] MEDS: Potassium Chlor TAB* 20 MEQ TAB.ER PO SCH ×2 (08:06→20:38)
[2017-07-10] MEDS: Hydrochlorothiazide TAB* 25 MG PO SCH (08:06)
[2017-07-10] MEDS: Vitamin THERAPEUTIC TAB PO SCH (08:06)
[2017-07-10] MEDS: Aspirin EC Low Dose* 81 MG TAB.EC PO SCH (08:06)
--- NOTE | 2017-07-10 11:08 | PN ---
Subjective - Subjective Date of Service: 07/10/17 Service Type: [id number] Hosp care 15 min low complexity Subjective: Jdaa continues to have anxiety in the morning, which was relieved by clonazepam. She continues to deny SI and is looking forward to returning home so that she can reunite with her daughter, Elizabeth. "I've got a motor scooter and I can use it down in [facility], where it's warm." She is planning on returning home to her apartment in [place] and packing up her belongings so that she is ready for when her kids arrive to pick her up on July 21. She is demonstrating adequate self-care and attention to ADLs. Objective - Appearance Appearance: Obese Dysmorphic Features: No Hygiene: Normal Grooming: Fairly Well Kept - Behavior Psychomotor Activities: Normal Exhibits Abnormal Movement: No - Attitude and Relatedness Attitude and Relatedness: Cooperative Eye Contact: Fair - Speech Quality: Unpressured Latencies: Normal Quantity: Appropriate - Mood Patient's Decription of Mood: "Anxious" - Affect Observed Affect: Fair Affect Consistent with: Euthymia - Thought Process Patient's Thought Process: Coherent Thought Content: No Passive Wish, No Suicidal Planning, No Homicidal Ideation, No Paranoid Ideation - Sensorium Experiencing Hallucinations: No, Sensorium is Clear Type of Hallucinations: Visual: No, Auditory: No, Command: No - Level of Consciousness Level of Consciousness: Alert Orientation: Yes Intact, Yes Orientated to Time, Yes Orientated to Place, Yes Orientated to Person - Impulse Control Impulse Control: Tenuous - Insight and Judgement Insight and Judgement: Fair - Group Participation Particating in Group Activities: No - Medication Management Medication Management Adherence: Yes Assessment - Assessment Merits Inpatient Hospitalization: Consolidate Improvements, Pending Safe DC Plan Inpatient DSM-IV Dx: Major depressive disorder, recurrent, severe, without psychotic features. Panic anxiety disorder without agoraphobia. Clinical Impression: 74 y.o. , white female with a history of depression and anxiety admitted to medicine following an intentional ingestion of approximately 75 tablets of 0.5mg strength lorazepam in suicide attempt. Patient now denies SI and is regretful, but still c/o depressed mood with multiple neurovegetative symptoms and profound anxiety. Plan - Plan Treatment Plan: Name: JADA FINCH Birthdate: 1940 [id number] The patient is receiving sertraline 50mg daily and clonazepam 0.5mg PO BID prn for anxiety. Encourage milieu participation. PT/OT consults were completed and patient has no assisted needs. Family has been in contact and agreeable with discharge planning. Patient will likely move to [place] with her daughter on the of this month. [employer] tomorrow, 07/11, for discharge. Continued Medication Management: Start Medication Medications: Current Medications Acetaminophen (Tylenol Tab*) 650 mg PO Q4H PRN PRN Reason: for pain; or Temp >101 F Last Admin: 07/10/17 07:48 Dose: 650 mg Aspirin (Aspirin Ec Low Dose*) 81 mg PO DAILY [facility] Last Admin: 07/10/17 08:06 Dose: 81 mg Clonazepam (Klonopin Tab(*)) 0.5 mg PO BID PRN PRN Reason: ANXIETY Last Admin: 07/10/17 05:57 Dose: 0.5 mg Hydrochlorothiazide (Hydrodiuril Tab*) 25 mg PO DAILY [facility] Last Admin: 07/10/17 08:06 Dose: 25 mg Latanoprost (Xalatan 0.005%*) 1 drop BOTH EYES BEDTIME [facility] PRN Reason: Protocol Last Admin: 07/09/17 20:40 Dose: 1 drop Multivitamins (Theragran Tab*) 1 tab PO DAILY [facility] Last Admin: 07/10/17 08:06 Dose: 1 tab Potassium Chloride (Klor Con Er Tab*) 20 meq PO BID [facility] Last Admin: 07/10/17 08:06 Dose: 20 meq Sertraline HCl (Zoloft*) 50 mg PO DAILY [facility] Last Admin: 07/10/17 08:06 Dose: 50 mg Zolpidem Tartrate (Ambien Tab*) 5 mg PO BEDTIME PRN PRN Reason: INSOMNIA - Discharge Plan Discharge Plan: Outpatient Follow Up
[2017-07-10] MEDS ORDERED: clonazePAM TAB(*) 0.5 MG PO PRN ×2 (12:54→17:00)
[2017-07-10] MEDS: Latanoprost 0.005%* 2.5 ml BTL BOTH EYES SCH (20:37)
[2017-07-11] MEDS: Acetaminophen TAB* 325 MG PO PRN (06:15)
[2017-07-11] MEDS: Aspirin EC Low Dose* 81 MG TAB.EC PO SCH (09:01)
[2017-07-11] MEDS: Potassium Chlor TAB* 20 MEQ TAB.ER PO SCH (09:01)
[2017-07-11] MEDS: Hydrochlorothiazide TAB* 25 MG PO SCH (09:01)
[2017-07-11] MEDS: Sertraline* 25 MG TAB PO SCH (09:02)
[2017-07-11] MEDS: Vitamin THERAPEUTIC TAB PO SCH (09:02)
[2017-07-11 09:57] VITALS: BP 150/70
--- NOTE | 2017-07-12 00:57 | DS ---
DISCHARGE SUMMARY: DATE OF ADMISSION: 07/04/17 DATE OF DISCHARGE: 07/11/17 DISCHARGE DIAGNOSES: [place] I: Major depressive disorder, recurrent, severe without psychotic features ; panic anxiety disorder without agoraphobia. [place] II: Borderline personality disorder. [place] III: L ow back pain, obesity, hypertension, ocular headaches, glaucoma. [place] IV: Severe primary support str essors. [place] V: At the time of admission was 30 and at the time of discharge is 60. CONDITION AT THE TIME OF DISCHARGE: Stable. The patient has strongly denied suicidal ideations thro ughout her hospitalization. She is very remorseful and regretful of her overdose. She feels good ab out the plan for discharge that we have put together with the assistance of her family, specifically her daughter is traveling up from [place] in order to pickup the patient and move her down to the [facility] where she will be with family. We have had multiple conversations with her daughter s and they are in support of the discharge plan. For her remaining time in [facility] which will apparently be around 10 days, we will be getting temporary at home nursing services to assist with me d management and to straighten and tidy her house and get her ready to move. The patient is in agree ment with these services. She has been granted a 30-day supply of medications as well as paper scrip ts that are post-dated for July of this year that she can use in [place] while she is waiting to get hooked in with a new primary care provider. She can follow up with primary care services in [facility]. The patient has been safe on all checks and although she is needy she has given us no indicatio n that she would not be safe until her family arrives to transport her to her new home in [place]. MENTAL STATUS AT THE TIME OF DISCHARGE: The patient is an overweight white female who is sitting up in bed, wearing patient scrubs with fair to poor grooming. She makes very good eye contact. Her serena guage skills are intact with normal rate, tone and volume. She does appear to be slightly hard of he aring. It is easy to establish a rapport with her. Mood is mildly anxious with a corresponding anxi ous affect. Thought process is linear and goal directed. Thought content is significant for her str naif desire to be discharged from the hospital and return to [place] to live with her family. She den ies suicidal or homicidal ideations and has done so throughout her extended hospitalization. She den ies auditory or visual hallucinations and there is no evidence of psychosis. Insight and judgement a re fair given her willingness to continue treatment on an outpatient basis. Cognitively, she is awake and alert with what would appear to be an average intellect. DISCHARGE INSTRUCTIONS: To the patient are as follows: A. Medications: She is on: 1. K-Dur 20 mEq p.o. b.i.d. 2. HCTZ 25 mg p.o. daily. 3. Bimatoprost 0.01% one drop to both eyes q.h.s. 4. Clonazepam 0.25 mg p.o. t.i.d. as a p.r.n. for anxiety. 5. Zoloft 50 mg p.o. daily. 6. Aspirin 81 mg p.o. daily. B. Diet: Regular. C. Activities: As tolerated. The patient is a nonsmoker. There are no laboratory or diagnostic st udies pending at the time of discharge. D. Followup care: The patient is going to be moving from the [facility] to [place]. Ther e she is going to be seeing her daughter's primary care provider in [place]. We have not established an appointment as yet because it is uncertain when her arrival date in that [facility] will be. Substance abuse followup is nonapplicable as the patient has no current substance abuse issues. HOSPITAL COURSE: Part A: Reason for admission: The patient is a 76-year-old white female w ith a history of depression and anxiety as well as borderline personality disorder, who was transferr ed from the medical service following an intentional ingestion of approximately 75 tablets of 0.5 mg strength of lorazepam in a suicide attempt. Ms. Stewart apparently took the overdose 2 nights prior to her emergency room visit, but did not tell anyone until 12 to 13 hours after. When she did present t o the ED, she was evidencing slurred speech and lethargy. There was some suggestion of left-sided we akness and so she was seen by the Neurology consult team. Later, the history emerged that she had ta william an intentional overdose on Ativan and complained to the primary team about feeling alone, sufferi ng frequent panic attacks and missing her daughter who resides in [place]. Prior to her admission on our unit, I was able to leave messages with her family including her daughter named, Elizabeth, but was not able to reach anyone for collateral history at that time. When I met initially with the patient on the consult service on the medical unit, she states "I have been panicky since I was a teenager be cause of my mother." She went on to tell me about feelings that her mother did not love her adequate ly. Her panic attacks apparently worsened through her teenage years and she states that she "went th rough hell." She indicates that the suicide attempt was premeditated for approximately 1 week, but a t that time she was regretting it, saying "I can't leave Elizabeth this way." She indicated that her [facility] doctor, Dr. Lundberg in [place], [place] is her primary care provider and had been supplying her with the prescription for lorazepam. She tells me that she cannot take the whole 4 mg pill becau se it makes her dizzy. She did indicate that she has had decreased functioning for the last several months, has not been cleaning her apartment or doing dishes and she complained openly about anxiety, dyspepsia, and amotivation. The patient states that what she would really like is to move down to [facility] to be with her daughter; however, her daughter's house is too small and the family was waiting for one of their children to graduate high school before they would have room enough for Jada to c ome live with them. Symptomatically, she did endorse multiple neurovegetative symptoms including ins omnia with early awakening, anhedonia, lethargy, and psychomotor retardation; however, she denied china lt, concentration problems or appetite disturbances. She did endorse recent suicidal ideations, but not currently. When asked what she needed, she indicated that she would like to be put on medication s to reduce her anxiety. I did note at the time that she had been hospitalized briefly on the [facility] oral science unit in November of 2014 and treated effectively with a combination of sertraline and BuSpar . When asked what happened following that hospitalization, she indicated to me that the medication wo rked well for her and she stopped taking it because she felt better. Part B: Psychiatric treatment rendered: The patient was admitted to the [facility] where she was placed on q.15 minute checks for her own safety. We resumed treatment with Zoloft in itially a 25 mg daily and then titrate it up to 50 mg daily. For anxiety, we started treating her wi th hydroxyzine; however, she could not tolerate this, feeling like it made her "loopy." Thereafter, ruben bui switched her to clonazepam initially at 0.5 mg as needed, but this was too strong and was reduced t o a 0.25 mg up to 3 times daily. We were able to contact both of her daughters, Misael and Elizabeth who indicated that they were strongly in support of her moving to [place]. The plan was made for her christopher ebony Johnson to drive in a rented car to [place] to pick her up on July 21 of this year. In the m eantime, we felt that she would benefit from at home nursing care, so visiting nursing services was a rranged prior to discharge. Throughout the hospitalization, the patient denied suicidality. I will say that we did see evidence of borderline personality pathology given the fact that the patient disp layed poor boundaries, often requesting hugs from this clinician. She reacted in an overly emotional way. If I was late by even 30 minutes from the time in which I would tell her that I was seeing her and she displayed abandonment issues in these instances. This was consistent with the history that we had from her daughters that the patient often has difficult interpersonal interactions and tends t o utilize splitting as an ego defence strategy. Nonetheless, the patient did well on our unit. She was evaluated by PT and OT and was not found to have any alf needs at this time. They fe lt that she was safe for discharge to an independent setting as long as she could get some assistance packing her medications, which we have arranged through visiting nursing services. The patient is s trongly requesting discharge stating that she does not like the unit and she denies any thoughts of s elf-harm, giving her daughter and her grandchildren as the prime reasons that she wants to continue l iving. She also states she is looking forward to getting a motor scooter and being able to ride [employer] on a moped. [id number]/[facility] #: [id number]
== END 2017-07-11 14:00 | disposition home health service (06) | DRG 885 ==
LOC: BSU 22:36
PROVIDERS: ADMIT Psychiatry & Neurology Psychiatry; ATTEND Psychiatry & Neurology Psychiatry
DX: F33.2 Major depressive disorder, recurrent severe without psychotic features (principal); E66.9 Obesity, unspecified; F41.0 Panic disorder [episodic paroxysmal anxiety]; F60.3 Borderline personality disorder; M54.5 Low back pain; Z68.30 Body mass index [BMI] 30.0-30.9, adult; I10 Essential (primary) hypertension; H40.9 Unspecified glaucoma; R51 Headache; Z79.1 Long term (current) use of non-steroidal anti-inflammatories (NSAID); Z79.82 Long term (current) use of aspirin; Z79.899 Other long term (current) drug therapy; Z88.8 Allergy status to other drugs, medicaments and biological substances; Z81.1 Family history of alcohol abuse and dependence
CPT/HCPCS: 99222; 99231; 99238; A9270-GY